=== PATIENT | male | born 1995 | race Caucasian/White ===

== ENCOUNTER 2021-05-06 14:24 | Emergency (ER) | payer OTHER ==
[~2021-05-06 14:24] MED LIST: FLEXERIL 10 MG10 MG PO; NAPROSYN500 MG PO; NORCO 10-325 T1 EACH PO; NORCO 5-325 TA1 EACH PO; PHENERGAN IM25 MG/ML PO; PREDNISONE 50 M50 MG PO; PROTONIX PO; Voltaren Gel 1% TOP; ZOFRAN ODT 4 MG4 MG PO
[2021-05-06 16:34] LABS: HEMOGLOBIN 15.7 gm/dl (14.0-17.5); RED BLOOD COUNT 4.9 M/UL (4.20-5.50)
[2021-05-06 17:01] LABS: BUN/CREATININE RATIO 6 (0-10)
[2021-05-06] MEDS ORDERED: TORADOL 10 MG T10 MG PO (19:29)
[2021-05-06] MEDS ORDERED: ONDANSETRON ODT4 MG SL (19:29)
[2021-05-06] MEDS ORDERED: FLOMAX 0.4 MG0.4 MG PO (19:29)
[2021-05-06] MEDS ORDERED: HYDROCODON-ACE1 EAC2 PO (19:32)
== END 2021-05-06 19:48 | disposition home or self-care (01) ==
LOC: ER1 14:24
PROVIDERS: Emergency Medicine
DX: N13.2 Hydronephrosis with renal and ureteral calculous obstruction (principal); Z90.89 Acquired absence of other organs; Z90.49 Acquired absence of other specified parts of digestive tract; F17.200 Nicotine dependence, unspecified, uncomplicated
CPT/HCPCS: 76870; 80053; 81001; 83690; 85025; 96374; 96375; 99284; J1885; J2405